=== PATIENT | male | born 1940 | race Caucasian/White ===

== ENCOUNTER 2020-01-26 20:25 | Inpatient (IN) | payer SELFPAY ==
[~2020-01-26] VITALS: Ht 167.6 cm; Wt 98.4 kg
[2020-01-26 20:25] VITALS: BP_SYST 200
--- NOTE | 2020-01-26 20:48 | NUR ---
Patient to ER bed 2 to gown for evaluation. Side rails up.
--- NOTE | 2020-01-26 21:00 | NUR ---
Pt BIB family to ED with history of hypertension on medications (unknown names), hyperlipidemia, and chronically on O2 at home (unknown reason), brought in by ambulance for sudden onset, shortness of breath and lightheadedness tonight. He was in a [facility] looking for medication for his left hand laceration endured tonight while peeling potatoes during onset. He attributes his symptoms to the laceration. No alleviating or exacerbating factors. No radiation of pain. No fevers, chills, cough, chest pain, chest pain, palpitations, syncope, nausea, vomiting, visual acuity changes, or other medical complaints at this time.
--- NOTE | 2020-01-26 21:20 | NUR ---
Dr. Arora bedside for LAC Repair procedure, well tolerated
[2020-01-26] MEDS ORDERED: BACITRACIN 1 GM OINT TP ONE (21:22)
[2020-01-26 21:40] LABS: HEMATOCRIT 40.2 % (36-54); HEMOGLOBIN 13.2 g/dL (14.0-18.0); MEAN CORPUSCULAR HEMOGLOBIN 30 pg (27-31); MEAN CORPUSCULAR HGB CONC 33 % (32-36); MEAN CORPUSCULAR VOLUME 91 fL (79.0-98.0); PLATELET COUNT (AUTO) 209 K/uL (130-430); RED BLOOD CELL COUNT(AUTO) 4.43 MIL/uL (4.2-6.2); RED CELL DISTRIBUTION WIDTH 14.7 % (9.0-15.0)
[2020-01-26 21:48] LABS: ANION GAP 9 (5-15); CALCIUM 8.8 mg/dL (8.4-11.0); CHLORIDE 103 mmol/L (98-107); CREATININE 1.34 mg/dL (0.55-1.30); GLUCOSE 155 mg/dL (70-99); POTASSIUM 3.6 mmol/L (3.5-5.1); SODIUM SERUM 139 mmol/L (136-145); UREA NITROGEN, BLOOD 23 mg/dL (8-21)
[2020-01-26 21:57] LABS: BAND % (MANUAL) 0 % (0-6); BASOPHILS % (MANUAL) 0 % (0-2); EOSINOPHILS % (MANUAL) 14 % (0-7); LYMPHOCYTES % (MANUAL) 17 % (20-46); MONOCYTES % (MANUAL) 4 % (0-11)
[2020-01-26] MEDS ORDERED: NITROGLYCERIN 0.4 MG TAB.SUBL SL ONE (22:00)
[2020-01-26] MEDS ORDERED: NITROGLYCERIN 1 INCH (GM) OINT. TP ONE (22:00)
[2020-01-26] MEDS ORDERED: DIPH-TET-PERTUS Vaccine 0.5 ML VIAL (ADACEL) I.M. ONE (22:00)
--- NOTE | 2020-01-26 22:16 | NUR ---
Portable X Ray bedside, with Dr. Arora present to take initial look
--- NOTE | 2020-01-26 22:21 | NUR ---
Dr. Arora bedside for pt re-eval and update
[2020-01-26] MEDS ORDERED: ASPIRIN 81 MG TAB.CHEW PO ONE (22:30)
[2020-01-26] MEDS ORDERED: LABETALOL 100 MG/ 20ML VIAL IVP ONE (22:30)
[2020-01-26 23:15] LABS: BILIRUBIN,URINE NEGATIVE (NEGATIVE); BLOOD, URINE 3+ (NEGATIVE); CLARITY/URINE CLEAR (CLEAR); COLOR,URINE YELLOW (YELLOW); GLUCOSE,URINE NEGATIVE (NEGATIVE); KETONES,URINE NEGATIVE (NEGATIVE); LEUKOCYTE ESTERASE ,URINE NEGATIVE (NEGATIVE); NITRITE, URINE NEGATIVE (NEGATIVE); PROTEIN URINE 2+ (NEGATIVE); UROBILINOGEN,URINE 0.2 (0.2-1.0)
[2020-01-26 23:20] LABS: BACTERIA,URINE RARE /HPF (None Seen); RBC,URINE >100 /HPF (0-3); WBC,URINE 0-3 /HPF (0-3)
--- NOTE | 2020-01-26 23:29 | NUR ---
VSS NO S/S OF ACUTE DISTRESS RESTING ON GURNEY RAILS UP
--- NOTE | 2020-01-27 00:34 | NUR ---
VSS NO S/S OF ACUTE DISTRESS RESTING ON GURNEY RAILS UP
--- NOTE | 2020-01-27 01:12 | NUR ---
LABETALOL IV MED EFFECTIVE CURRENT BP 164/89
--- NOTE | 2020-01-27 02:15 | NUR ---
VSS, BP currently at 172/86, compared to SBP above 200 during beginning of ED visit
--- NOTE | 2020-01-27 03:28 | NUR ---
Pt states "feeling better."
--- NOTE | 2020-01-27 04:31 | NUR ---
Pt tossed and turned abruptly and tugged on moncada cath, small to moderate hematuria via moncada, urine color trending degree clerk
--- NOTE | 2020-01-27 05:41 | NUR ---
Current BP 170/91, VSS no s/s of acute distress
--- NOTE | 2020-01-27 05:49 | NUR ---
CONSULTATION PAGED/CALLED Reason for Consultation: CHEST PAIN Person Who was Notified: DAMARIS Consulting Physician: BERNADINE MCFARLAND IS [employer] ADMINISTRATOR Director Of Sales Support Specialty: CARDIO Ordering Physician: ABDIAS
--- NOTE | 2020-01-27 07:10 | NUR ---
REPORT RECEIVED FROM MAYANK CRUZ FOR CONTINUING CARE
--- NOTE | 2020-01-27 08:21 | NUR ---
DR. CALERO AT THE BEDSIDE
[2020-01-27] MEDS ORDERED: ZOLPIDEM TARTRATE 5 MG TABLET PO PRN (08:30)
[2020-01-27] MEDS ORDERED: ACETAMINOPHEN 325 MG TABLET PO PRN (08:30)
[2020-01-27] MEDS ORDERED: POTASSIUM CHLORIDE 20 MEQ TAB.PRT.SR PO PRN (08:30)
[2020-01-27] MEDS ORDERED: MAGNESIUM SULFATE 50 ML IV PRN (08:30)
[2020-01-27] MEDS ORDERED: DOCUSATE SODIUM 100 MG CAPSULE PO PRN (08:30)
[2020-01-27] MEDS ORDERED: ENOXAPARIN SODIUM 40 MG/0.4 ML SYRINGE SUBCUT SCH (09:00)
[2020-01-27] MEDS ORDERED: METOPROLOL TARTRATE 25 MG TABLET PO SCH (09:00)
--- NOTE | 2020-01-27 09:15 | NUR ---
Patient will be admitted to care of DR. CALERO. Admitted to TELE unit. Will go to room 104B. Belongings list completed. Complete and up to date summary report printed. SBAR report to be given at bedside with opportunity for questions.
[2020-01-27 09:25] LABS: BASOPHILS # (AUTO) 0.1 K/uL (0.0-0.2); BASOPHILS % (AUTO) 0.5 % (0.0-2.0); EOSINOPHILS # (AUTO) 1.6 K/uL (0.0-0.4); EOSINOPHILS % (AUTO) 10.5 % (0.0-4.0); HEMATOCRIT 38.2 % (36-54); HEMOGLOBIN 12.2 g/dL (14.0-18.0); LYMPHOCYTES # (AUTO) 1.6 K/uL (1.0-5.5); LYMPHOCYTES % (AUTO) 11.1 % (20.5-51.5); MEAN CORPUSCULAR HEMOGLOBIN 29 pg (27-31); MEAN CORPUSCULAR HGB CONC 32 % (32-36); MEAN CORPUSCULAR VOLUME 92 fL (79.0-98.0); MONOCYTES % (AUTO) 6.9 % (1.7-9.3); NEUTROPHILS # (AUTO) 10.5 K/uL (1.8-7.7); PLATELET COUNT (AUTO) 195 K/uL (130-430); RED BLOOD CELL COUNT(AUTO) 4.16 MIL/uL (4.2-6.2); RED CELL DISTRIBUTION WIDTH 14.9 % (9.0-15.0); WHITE BLOOD COUNT (AUTO) 14.8 K/uL (4.8-10.8)
--- NOTE | 2020-01-27 09:52 | NUR ---
Opening Note received bedside SBAR report from PETROLEUM SAMPLER, patient brought to room 104B via gurney, patient resting in bed, patient placed on 2L nasal cannula and secured entrance monitor, moncada catheter draining to gravity, red urine noted, BP 188/108, HR 83, educated patient on use of call light and asked to call for assistance, patient returned demonstration, call light in reach, bed in low and locked position, bed alarm on.
[2020-01-27] MEDS: cefTRIAXone 1 GM in D5W 50 ML IV SCH (09:56)
--- NOTE | 2020-01-27 09:57 | NUR ---
Called Pharmacy called Pharmacy, spoke with Rosie, informed her that patients medication Lopressor is not available in the medication pixis, per Rosie she will inform the pharmacist.
[2020-01-27 10:00] VITALS: BP_SYST 188
--- NOTE | 2020-01-27 10:16 | NUR ---
Physician Rounds Dr. Bates at bedside examining patient, informed him of recent BP 188/108, HR 83, per Dr. Bates PO lopressor is all that is needed for now, Dr. Bates examined moncada catheter, saw bloody urine present, per Dr. Bates d/c moncada catheter, verified with read back.
[2020-01-27 12:00] VITALS: BP_SYST 167
[2020-01-27] MEDS: cloNIDine HCL 0.2 MG TABLET PO PRN (12:04)
--- NOTE | 2020-01-27 12:12 | NUR ---
D/C Moncada Catheter educated patient on purpose and procedure for moncada catheter removal, patient verbalized understanding and is agreeable, 10ml NS removed from balloon, moncada catheter removed, catheter intact, patient tolerated well, patient sitting up in bed eating lunch.
--- NOTE | 2020-01-27 12:46 | NUR ---
Medication Reconciliation patient states that he takes medication at home for blood pressure, however patient does not know what the medication is called, patient states that he does not have any family to call and ask because he lives alone.
--- NOTE | 2020-01-27 13:20 | NUR ---
Wound Care educated patient on purpose and procedure for wound care, patient verbalized understanding, wound care completed, photographs taken and placed in chart, patient tolerated well, patient reports pain is controlled during and after wound care, see MST shift assessment for wound care.
--- NOTE | 2020-01-27 15:15 | NUR ---
RN Rounds patient sleeping in bed, respirations even and unlabored on 2L nasal cannula, no acute distress noted.
[2020-01-27 16:00] VITALS: BP_SYST 152
--- NOTE | 2020-01-27 17:50 | NUR ---
Education educated patient on use and purpose of SCDs for DVT prophylaxis, patient verbalized understanding, SCDs in place, no acute distress noted.
--- NOTE | 2020-01-27 19:11 | NUR ---
Closing Note bedside SBAR report given to receiving RN, patient resting in bed, respirations even and unlabored on 2L nasal cannula, no acute distress noted, room close to nurses station, educated patient on use of call light and asked to call for assistance, patient verbalized understanding, call light in reach, bed in low and locked position, bed alarm on, care endorsed to rand butter RN.
--- NOTE | 2020-01-27 19:30 | NUR ---
OPENING NOTE RECEIVED CARE OF PT AND SBAR REPORT. PT IS AAOX4, RESTING IN BED, BREATHING IS EVEN AND UNLABORED TO O2 VIA NC AT 2L. NO S/S OF ACUTE DISTRESS NOTED. SAFETY AND FALL PRECAUTIONS ARE IN PLACE. BED IS LOCKED AND ALARMED AT THE LOWEST LEVEL. CALL LIGHT IS WITH PT. ROOM CLOSE TO NURSES STATION. WILL MONITOR.
[2020-01-27 20:00] VITALS: BP_SYST 133
[2020-01-27] MEDS: METOPROLOL TARTRATE 25 MG TABLET PO SCH (21:06)
--- NOTE | 2020-01-27 21:06 | NUR ---
MED PASS PT TOOK SCHEDULED MEDICATION ORDERED. SAFETY MAINTAINED. WILL MONITOR.
--- NOTE | 2020-01-27 23:30 | NUR ---
RN Rounds patient sleeping in bed, respirations even and unlabored on 2L nasal cannula, no acute distress noted.
[2020-01-28 01:30] VITALS: BP_SYST 158
[2020-01-28] MEDS: MORPHINE 2 MG/ML INJ. SYRINGE IVP PRN ×2 (01:40→20:26)
--- NOTE | 2020-01-28 01:40 | NUR ---
PAIN/MORPHINE PT REPORTING NOT BEING ABLE TO TAKE DEEP BREATHS. O2 SAT IS 99% ON ROOM AIR. PT PUT ON 2L O2 VIA NC. VSS. PT REPORTING MODERATE CHEST PAIN. MORPHINE GIVEN ORDERED PRN FOR PAIN. MEDICATION ACTIONS AND POTENTIAL SIDE EFFECTS EXPLAINED, PT VERBALIZED UNDERSTANDING. SAFETY MAINTAINED. WILL MONITOR.
[2020-01-28] MEDS: ONDANSETRON HCL 4 MG/2 ML VIAL IVP PRN ×2 (01:53→20:26)
--- NOTE | 2020-01-28 01:53 | NUR ---
ZOFRAN ZOFRAN GIVEN FOR REPORT OF NAUSEA ORDERED PRN. MEDICATION EXPLAINED TO PT, PT VERBALIZED UNDERSTANDING. SAFETY MAINTAINED. WILL MONITOR.
[2020-01-28] MEDS: LORazepam 2 MG/ML VIAL IVP PRN (02:20)
--- NOTE | 2020-01-28 04:05 | NUR ---
RN Rounds patient sleeping in bed, respirations even and unlabored on 2L nasal cannula, no acute distress noted.
[2020-01-28 06:43] LABS: BASOPHILS # (AUTO) 0.1 K/uL (0.0-0.2); BASOPHILS % (AUTO) 0.4 % (0.0-2.0); EOSINOPHILS # (AUTO) 2.1 K/uL (0.0-0.4); EOSINOPHILS % (AUTO) 15.9 % (0.0-4.0); HEMATOCRIT 33.7 % (36-54); HEMOGLOBIN 10.7 g/dL (14.0-18.0); LYMPHOCYTES # (AUTO) 1.9 K/uL (1.0-5.5); LYMPHOCYTES % (AUTO) 14.1 % (20.5-51.5); MEAN CORPUSCULAR HEMOGLOBIN 29 pg (27-31); MEAN CORPUSCULAR HGB CONC 32 % (32-36); MEAN CORPUSCULAR VOLUME 92 fL (79.0-98.0); MONOCYTES # (AUTO) 0.9 K/uL (0.0-1.0); MONOCYTES % (AUTO) 6.5 % (1.7-9.3); NEUTROPHILS # (AUTO) 8.3 K/uL (1.8-7.7); PLATELET COUNT (AUTO) 181 K/uL (130-430); RED BLOOD CELL COUNT(AUTO) 3.65 MIL/uL (4.2-6.2); RED CELL DISTRIBUTION WIDTH 14.8 % (9.0-15.0); WHITE BLOOD COUNT (AUTO) 13.2 K/uL (4.8-10.8)
[2020-01-28 07:12] LABS: ALANINE AMINOTRANSFERASE 35 U/L (12-78); ALBUMIN 2.2 g/dL (3.4-4.8); ANION GAP 8 (5-15); ASPARTATE AMINOTRANSFERASE 29 U/L (10-37); CALCIUM 8.5 mg/dL (8.4-11.0); CHLORIDE 107 mmol/L (98-107); CREATININE 1.21 mg/dL (0.55-1.30); GLUCOSE 113 mg/dL (70-99); POTASSIUM 3.6 mmol/L (3.5-5.1); SODIUM SERUM 141 mmol/L (136-145); THYROID STIMULATING HORMONE 4.96 uIu/mL (0.36-3.74); TOTAL BILIRUBIN 0.4 mg/dL (0.0-1.0); UREA NITROGEN, BLOOD 29 mg/dL (8-21)
--- NOTE | 2020-01-28 07:17 | NUR ---
Opening Note received bedside SBAR report from overnight cashier RN, patient resting in bed, respirations even and unlabored on 2L nasal cannula, no acute distress noted, room close to nurses station, educated patient on use of call light and asked to call for assistance, patient verbalized understanding, call light in reach, bed in low and locked position, bed alarm on.
[2020-01-28 07:41] LABS: CHOLESTEROL 88 mg/dL (<200); HDL CHOLESTEROL 29 mg/dL (>45); LDL CHOLESTEROL 52 mg/dL (<100); TRIGLYCERIDES 59 mg/dL (30-150)
[2020-01-28 08:09] LABS: NEUTROPHILS % (AUTO) 63.1 % (40.0-70.0)
[2020-01-28] MEDS: cefTRIAXone 1 GM in D5W 50 ML IV SCH (08:28)
[2020-01-28] MEDS: METOPROLOL TARTRATE 25 MG TABLET PO SCH ×2 (08:28→20:24)
--- NOTE | 2020-01-28 08:33 | NUR ---
Physician Rounds rounds with Dr. Good, informed him that when patient was admitted from ER moncada bag contained bloody urine, informed him that per Dr. Bates the moncada catheter was discontinued yesterday, informed him that patient is still having bloody urine when voiding.
--- NOTE | 2020-01-28 08:50 | NUR ---
Physician Rounds Dr. Good at bedside examining patient.
--- NOTE | 2020-01-28 08:52 | NUR ---
CONSULTATION PAGED/CALLED Reason for Consultation: [] HEMATURIA Person Who was Notified: [] DR SPICER Consulting Physician: [] Estefany REA Electric Motor Mechanic Specialty: [] UROLOGIST Ordering Physician: [] DR CALERO
--- NOTE | 2020-01-28 08:54 | NUR ---
Spoke with Physician spoke with Dr. Ordoñez, informed him that patient had moncada catheter inserted in ER, when patient was brought to the floor yesterday the moncada bag contained bloody red urine, the moncada catheter was discontinued yesterday per Dr. Bates's order, since then the patient has been having blood in his urine, per Dr. Ordoñez he will be in to see the patient.
[2020-01-28] MEDS ORDERED: MUPIROCIN 2% TOPICAL OINTMENT 22 GM NS PRN (09:00)
[2020-01-28 09:05] VITALS: BP_SYST 152
--- NOTE | 2020-01-28 10:33 | NUR ---
Physician at bedside Dr. Ordoñez at bedside examining patient, physician completed post void bladder scan, minimal residual, voided urine is dark red, Dr. Ordoñez inserted moncada catheter 18F, patient tolerated well, immediate return of bloody urine into moncada catheter bag, moncada catheter secured to right upper thigh with moncada catheter securement device, moncada catheter draining to gravity. Addendum: 01/28/20 at 1124 by Flavia Ramirez RN per Dr. Ordoñez moncada catheter should be irrigated at least once per shift or PRN to make sure urine is flowing freely in catheter, verified with read back.
--- NOTE | 2020-01-28 11:05 | NUR ---
Physician Rounds Dr. Bates at bedside examining patient.
[2020-01-28 12:16] VITALS: BP_SYST 145
--- NOTE | 2020-01-28 13:05 | NUR ---
Ambulated to bathroom patient requesting to use bathroom, patient ambulated to bathroom, steady gait noted, patient used bathroom independently, BM x1, linen changed, patient ambulated back to bed, patient resting in bed.
--- NOTE | 2020-01-28 13:22 | NUR ---
Wound Care educated patient on purpose and procedure for wound care, patient verbalized understanding, wound care completed to left thumb, patient tolerated well, patient denies any pain during or after wound care, no acute distress noted, see MST shift assessment for wound care.
--- NOTE | 2020-01-28 15:36 | NUR ---
Bladder Irrigation orders to irrigate moncada catheter Qshift, educated patient on purpose and procedure for moncada catheter irrigation, patient verbalized understanding, moncada catheter irrigated with 30ml sterile water, sterile technique observed, no clots noted in moncada catheter, draining well, bright red urine noted in moncada catheter tubing, patient tolerated well.
[2020-01-28 16:05] VITALS: BP_SYST 140
--- NOTE | 2020-01-28 18:48 | NUR ---
IV access IV catheter dislodged by patient, IV catheter found in patients bed, catheter intact, no bleeding, educated patient on purpose and procedure for IV catheter placement, patient verbalized understanding, IV catheter placed to right AC, 22G, flushes easily with good blood return, patient tolerated well.
--- NOTE | 2020-01-28 19:04 | NUR ---
Closing Note bedside SBAR report given to receiving RN, patient resting in bed, respirations even and unlabored on 2L nasal cannula, no acute distress noted, room close to nurses station, educated patient on use of call light and asked to call for assistance, patient verbalized understanding, call light in reach, bed in low and locked position, bed alarm on, care endorsed to shiftman RN.
--- NOTE | 2020-01-28 19:30 | NUR ---
OPENING NOTE RECEIVED CARE OF PT AND SBAR REPORT. PT RESTING IN BED, RESPIRATION ARE EVEN AND UNLABORED TO ROOM AIR, TOLERATING WELL. NO S/S OF ACUTE DISTRESS NOTED. MALLOY CATHETER IS INTACT AND DRAINING TO GRAVITY, BLOODY URINE NOTED. IV IS SALINE LOCKED, PATENT AND INTACT. SAFETY PRECAUTIONS ARE IN PLACE. CALL LIGHT IS WITH PT. BED IS LOCKED AND ALARMED AT THE LOWEST LEVEL. ROOM IS CLOSE TO NURSES STATION. WILL MONITOR.
[2020-01-28 20:00] VITALS: BP_SYST 160
--- NOTE | 2020-01-28 20:26 | NUR ---
PRN MEDICATIONS PT REQUESTING MORPHINE AND ZOFRAN FOR REPORT OF MODERATE CHEST PAIN. PT EDUCATED ON MEDICATIONS INDICATIONS AND POTENTIAL SIDE EFFECTS. PT VERBALIZED UNDERSTANDING. PT TOLERATED WELL. SAFETY MAINTAINED. WILL MONITOR.
--- NOTE | 2020-01-28 22:00 | NUR ---
RN NOTE: PT NOTED TO HAVE SOILED LINENS. COMPLETE LINEN CHANGE PROVIDED. PT TOLERATED WELL. NO S/S OF ACUTE DISTRESS. SAFETY PRECAUTIONS MAINTAINED. WILL MONITOR.
[2020-01-29] MEDS: MORPHINE 2 MG/ML INJ. SYRINGE IVP PRN ×2 (00:42→17:53)
[2020-01-29 01:03] VITALS: BP_SYST 155
[2020-01-29] MEDS: LORazepam 2 MG/ML VIAL IVP PRN ×2 (01:18→20:29)
--- NOTE | 2020-01-29 01:18 | NUR ---
ATIVAN PT GIVEN ATIVAN PER REQUEST FOR ANXIETY. PT TOLERATED WELL. NO S/S OF ACUTE DISTRESS. SAFETY MAINTAINED. WILL MONITOR.
--- NOTE | 2020-01-29 03:56 | NUR ---
RN Rounds patient sleeping in bed, respirations even and unlabored on 2L nasal cannula, no acute distress noted.
[2020-01-29 06:26] LABS: BASOPHILS # (AUTO) 0.1 K/uL (0.0-0.2); BASOPHILS % (AUTO) 0.5 % (0.0-2.0); EOSINOPHILS # (AUTO) 1.3 K/uL (0.0-0.4); EOSINOPHILS % (AUTO) 8.6 % (0.0-4.0); HEMATOCRIT 34.3 % (36-54); HEMOGLOBIN 10.9 g/dL (14.0-18.0); LYMPHOCYTES % (AUTO) 13.5 % (20.5-51.5); MEAN CORPUSCULAR HEMOGLOBIN 29 pg (27-31); MEAN CORPUSCULAR HGB CONC 32 % (32-36); MEAN CORPUSCULAR VOLUME 92 fL (79.0-98.0); MONOCYTES # (AUTO) 1.1 K/uL (0.0-1.0); MONOCYTES % (AUTO) 7.4 % (1.7-9.3); NEUTROPHILS # (AUTO) 10.5 K/uL (1.8-7.7); PLATELET COUNT (AUTO) 190 K/uL (130-430); RED BLOOD CELL COUNT(AUTO) 3.71 MIL/uL (4.2-6.2); WHITE BLOOD COUNT (AUTO) 14.9 K/uL (4.8-10.8)
--- NOTE | 2020-01-29 06:35 | NUR ---
CLOSING NOTE PT RESTING IN BED, RESPIRATION ARE EVEN AND UNLABORED TO ROOM AIR, TOLERATING WELL. NO S/S OF ACUTE DISTRESS NOTED. MALLOY CATHETER IS INTACT AND DRAINING TO GRAVITY, BLOODY URINE NOTED. IV IS SALINE LOCKED, PATENT AND INTACT. SAFETY PRECAUTIONS ARE IN PLACE. CALL LIGHT IS WITH PT. BED IS LOCKED AND ALARMED AT THE LOWEST LEVEL. ROOM IS CLOSE TO NURSES STATION. WILL CONTINUE TO MONITOR UNTIL CARE IS ENDORSED TO DAY SHIFT RN.
[2020-01-29 06:51] LABS: ANION GAP 4 (5-15); CALCIUM 8.4 mg/dL (8.4-11.0); CHLORIDE 108 mmol/L (98-107); CREATININE 1.11 mg/dL (0.55-1.30); GLUCOSE 106 mg/dL (70-99); POTASSIUM 3.6 mmol/L (3.5-5.1); SODIUM SERUM 141 mmol/L (136-145); UREA NITROGEN, BLOOD 27 mg/dL (8-21)
--- NOTE | 2020-01-29 07:48 | NUR ---
Initial notes: Patient is alert, awake and oriented, not showing any signs of distress on 2L NC. Patient RAC IV is patent and SL at this time. Patient has MRI scheduled for this am, will have patient sign consent. Pérez cath is intact, draining red urine at this time, will irrigate as needed - will continue to monitor. I got a full report from the pm nurse. Bed is low, locked, 2 side rails are up and call light is within reach.
[2020-01-29 08:00] VITALS: BP_SYST 189
[2020-01-29] MEDS: cefTRIAXone 1 GM in D5W 50 ML IV SCH (08:00)
[2020-01-29] MEDS: METOPROLOL TARTRATE 25 MG TABLET PO SCH ×2 (08:01→22:25)
--- NOTE | 2020-01-29 10:15 | NUR ---
Patient awake and alert, sitting in bed. Not showing any signs of distress, denies pain. All needs were met. Bed is low, locked, 2 side rails are up and call light is within reach.
--- NOTE | 2020-01-29 10:30 | NUR ---
WOUND EVALUATION: Wound Consult received from Dr. Good. Thank you, Dr. Good, for the consult. Patient received in a Daniel Bed with an IsoFlex DAVID mattress, awake, alert, and oriented, Polish speaking. Patient is able to turn in bed independently. Chad Score is a 19. Past Medical History: COPD, Hypertension, Dyslipidemia, on oxygen at home. Admitted for accelerated hypertension with headache. Recent Labs: WBC 14.9, RBC 3.71, Hgb 10.9, Hct 34.3, Cl 108, BUN 27, Creat 1.11, Gluc 106, BNP 557, Alb 2.2. No microbiology reports. Intrinsic factors that delay wound healing: COPD, Hypoalbuminemia. Extrinsic factors that delay wound healing: Decreased mobility. Wound Assessment: 1. Left Thumb: Laceration, present on admission. Laceration has sutures, is approximated. No odor, no drainage. Rebekah-wound intact. Laceration measures 0.3 cm x 2.6 cm. Recommend: Cleanse with normal saline. Pat dry around incision. Carlyle laceration with Betadine. Allow to air dry. Wrap with enrike wrap and secure with tape. Perform wound care daily, and as needed for dressing soiling or dislodgment. 2. Left Dorsal Foot: Multiple tiny black scabs, present on admission. Lower portion of extremity and foot also have dry skin. 3. Right Dorsal Foot: Multiple tiny black scabs, present on admission. Lower portion of extremity and foot also have dry skin. Recommend: Cleanse extremities and feet with mild soap and water. Pat dry. Applt Eucerin cream to bilateral lowr extremities and feet. Perform site care BID. Also recommend: Encourage and assist patient as needed with repositioning every 2 hours with pillow support and off-load pressure areas with pillows for pressure re-distribution. Perform skin care and monitor skin integrity Q shift. Use Hydraguard barrier cream on buttocks and other moisture susceptible areas QID and as needed for soiling.
[2020-01-29 11:30] VITALS: BP_SYST 170
[2020-01-29] MEDS ORDERED: FUROSEMIDE 40 MG TABLET PO ONE (12:30)
[2020-01-29] MEDS ORDERED: GADOBENATE DIMEGLUMINE 529 MG/ML, 15 ML VIAL IV ONE (12:33)
--- NOTE | 2020-01-29 13:31 | NUR ---
DC Barriers: Uncontrolled HTN SBP 189-170/101 on Lisinopril and lasix, BBB, FC leakage/slight red tinged. Per Urologist : to keep moncada until urine is cleared and then tiral voiding. UTI pending UACx. Checking insurance self pay vs medicare/medi-nidhi.
--- NOTE | 2020-01-29 13:46 | NUR ---
Dietitian Recommendations *Continue Cardiac diet. *Recommend: add Robe BID for wound healing. Please see Nutrition F/U note for details. LOU THOMAS
[2020-01-29 15:32] VITALS: BP_SYST 164
[2020-01-29 16:00] VITALS: BP_SYST 164
--- NOTE | 2020-01-29 18:51 | NUR ---
Closing notes: Patient is alert, awake and oriented, not showing any signs of distress on 2L NC. Patient RAC IV is patent and SL at this time. Patient had an MRI done today. Pérez cath is intact, draining red urine at this time, will irrigate as needed - will continue to monitor, per MD do not remove despite the leak. All of the patients needs were met during the shift. Bed is low, locked, 2 side rails are up and call light is within reach.
[2020-01-29 20:00] VITALS: BP_SYST 202
[2020-01-29] MEDS: cloNIDine HCL 0.2 MG TABLET PO PRN (20:28)
--- NOTE | 2020-01-29 22:25 | NUR ---
Lopressor Due mediation given; blood pressure is 157/114, HR 94. He is awake resting in bed.
[2020-01-30 00:02] VITALS: BP_SYST 134
--- NOTE | 2020-01-30 03:14 | NUR ---
Irrigate F/C Patient resting in bed w/ eyes closed and momentarily awakened for irrigation. Presently he denies pain. Emptied 150 ml red tingle output from F/C. Irrigated with 80 ml NS, patient tolerating.
[2020-01-30] MEDS: cloNIDine HCL 0.2 MG TABLET PO PRN (06:01)
[2020-01-30 06:37] LABS: BASOPHILS # (AUTO) 0.1 K/uL (0.0-0.2); BASOPHILS % (AUTO) 0.7 % (0.0-2.0); EOSINOPHILS # (AUTO) 0.4 K/uL (0.0-0.4); EOSINOPHILS % (AUTO) 3.1 % (0.0-4.0); HEMATOCRIT 31.9 % (36-54); HEMOGLOBIN 10.4 g/dL (14.0-18.0); LYMPHOCYTES % (AUTO) 15.2 % (20.5-51.5); MEAN CORPUSCULAR HEMOGLOBIN 29 pg (27-31); MEAN CORPUSCULAR HGB CONC 33 % (32-36); MEAN CORPUSCULAR VOLUME 90 fL (79.0-98.0); MONOCYTES # (AUTO) 0.9 K/uL (0.0-1.0); MONOCYTES % (AUTO) 6.5 % (1.7-9.3); NEUTROPHILS # (AUTO) 9.9 K/uL (1.8-7.7); NEUTROPHILS % (AUTO) 74.5 % (40.0-70.0); PLATELET COUNT (AUTO) 182 K/uL (130-430); RED BLOOD CELL COUNT(AUTO) 3.56 MIL/uL (4.2-6.2); RED CELL DISTRIBUTION WIDTH 14.8 % (9.0-15.0); WHITE BLOOD COUNT (AUTO) 13.3 K/uL (4.8-10.8)
[2020-01-30 06:54] LABS: ANION GAP 7 (5-15); CALCIUM 8.4 mg/dL (8.4-11.0); CHLORIDE 106 mmol/L (98-107); CREATININE 0.98 mg/dL (0.55-1.30); GLUCOSE 103 mg/dL (70-99); POTASSIUM 3.4 mmol/L (3.5-5.1); SODIUM SERUM 140 mmol/L (136-145); UREA NITROGEN, BLOOD 25 mg/dL (8-21)
--- NOTE | 2020-01-30 07:50 | NUR ---
OPENING NOTES, RECEIVED PT IN BED, PT IS AAOX4, DENIES PAIN, BP ELEVATED , NO FEVER. MALLOY DRAINING REDDISH URINE. SAFETY PRECAUTION IN PLACE. BED IN LOW POSITION AND LOCKED, CALL LIGHT IN REACH. ENCOURAGED PT TO CALL FOR ASSIST AND PAIN MEDS. WILL CONT TO MONITOR.
[2020-01-30 07:55] VITALS: BP_SYST 115
[2020-01-30] MEDS ORDERED: FUROSEMIDE 40 MG TABLET ONE (08:27)
[2020-01-30] MEDS: METOPROLOL TARTRATE 25 MG TABLET PO SCH ×2 (08:30→21:13)
[2020-01-30] MEDS: cefTRIAXone 1 GM in D5W 50 ML IV SCH (08:30)
[2020-01-30] MEDS ORDERED: FUROSEMIDE 40 MG TABLET PO SCH (09:00)
--- NOTE | 2020-01-30 09:30 | NUR ---
PT RESTING IN BED, NO S/SO PAIN, MALLOY STILL DRAINING REDDISH URINE.
--- NOTE | 2020-01-30 10:30 | NUR ---
MALLOY CATH STILL DRAINING REDDISH URINE. FLUSHED WITH 120 CC OF NS. WILL PT TOLERATED WELL. WILL CONT TO MONITOR
[2020-01-30 11:03] VITALS: BP_SYST 145
--- NOTE | 2020-01-30 11:46 | NUR ---
TALKED TO PT IN [place]. PT SAID HE HAS NO FAMILY HERE. HIS FAMILY ARE IN [facility]. PT SAID HE LIVES IN AN APARTMENT ALONE.
--- NOTE | 2020-01-30 12:00 | NUR ---
SSW HERE AND SPOKE WITH PT, RE PAPERS RE HIS INSURANCE OR ANY MEDICAL CARD. PT REFUSED TO HAVE HIS BELONGINGS CHECKED FOR ANY TYPE OF PAPERS IN HIS BELONGINGS BAG.
--- NOTE | 2020-01-30 13:55 | NUR ---
SS notes: BANDSAW OPERATOR and RN met with patient at bedside to obtain more information. Pt stated he goes to a clinic on [facility] in [place] and gets his medication filled at the clinic. Pt also mentioned a different (07/27/1946). BANDSAW OPERATOR phoned [facility] (p:[phone]) which is located on [facility] in the [place] and provided them with patient name to look up, but unable to find patient in their system. Pt was brought in by [facility] from [facility] on [facility] in [place]; both [facility] and [facility] (p:[phone]) do not have patient information in their system. No translation line available at this time, and SS will follow up.
--- NOTE | 2020-01-30 14:30 | NUR ---
PT MALLOY CATH IRRIGATED AGAIN. NO CLOTS NOTED. DRAINAGE SLOWLY GETTING PINKISH IN COLOR. WILL CONT TO MONITOR.
--- NOTE | 2020-01-30 14:35 | NUR ---
CONSULTATION PAGED/CALLED Reason for Consultation: MENINGIOMA Person Who was Notified: STACY Consulting Physician: LUCIANO Supervisor Carbon Paper Coating Specialty: Ordering Physician: ABDIAS
--- NOTE | 2020-01-30 18:39 | NUR ---
DR WOLF IS HERE, INFORMED MD THAT DR CALERO WANTED FOR HIM TO SEE PT FOR MENIGIOMA AND DR CALERO WANTS TO KNOW IF PT CAN BE DC AND MANAGED OUT PT. DR WOLF SAID HE WILL SEE HJIM TOMORROW BECAUSE HE WANTS TO KNOW FIRST PT'S INSURANCE , SAID HE DOES NOT MEDICAL PATIENT.
--- NOTE | 2020-01-30 19:15 | NUR ---
CHANGE OF SHIFT; endorsed by day shift. no resp. distress. resting in bed when received. off O2. pt. room close to station. call light within reach.
--- NOTE | 2020-01-30 20:00 | NUR ---
NOTES: pt. awake, alert, citizen [place] speaking. IV lock on rt. antecubital. been getting ot of bed and ambulates inside the room. moncada cath to osd with vanessa urine, no blood. on cardiac rehabilitation specialist and shows sinus rhythm. call light at bedside.
[2020-01-30 21:00] VITALS: BP_SYST 164
--- NOTE | 2020-01-30 21:00 | NUR ---
NOTES: pt. due meds given. VS checked. pt. up and sitting in a chair. O2 standby, does not want to use now. O2 sat 97%.
[2020-01-30] MEDS: MORPHINE 2 MG/ML INJ. SYRINGE IVP PRN (21:42)
--- NOTE | 2020-01-30 21:42 | NUR ---
NOTES: pt. c/o chest pain, Morphine IVP given as ordered. instructed to stay in bed. also given sleeping pill.
[2020-01-31 00:30] VITALS: BP_SYST 154
--- NOTE | 2020-01-31 01:08 | NUR ---
NOTES: pt. already awake, saying he cant breathe but does not want to use O2. wants another Morphine not due yet. asked to stay in bed.
--- NOTE | 2020-01-31 02:00 | NUR ---
NOTES: pt. able to go back to sleep. no resp. distress. condition observed.
--- NOTE | 2020-01-31 04:00 | NUR ---
NOTES: pt. moncada leaking again, instill more saline for the balloon. irrigated with clear return , no bleeding. complete linen changed gown done. pt. keeps moving around, cannot keep still.
[2020-01-31] MEDS: MORPHINE 2 MG/ML INJ. SYRINGE IVP PRN (04:21)
--- NOTE | 2020-01-31 04:21 | NUR ---
NOTES: pt. still awake, wants medication for pain with his chest discomfort, IV Morphine given. instructed to stay in bed.
--- NOTE | 2020-01-31 05:30 | NUR ---
NOTES; PT. ALREADY AWAKE, UP AND WET WITH URINE, REMAIN LEAKING, WANTS MONCADA OUT. Addendum: 01/31/20 at 0637 by Archana Chua RN Late entry; 2540 informed pt. will remove moncada and replace another one, agreed but when removed does not want it back since he said it hurts,
--- NOTE | 2020-01-31 06:25 | NUR ---
NOTES: asked linen clerk to call Dr. Ordoñez, waiting for call back. pt. resting at this time.
--- NOTE | 2020-01-31 06:26 | NUR ---
PAGED PAGED ARELIS ALEXANDRA AT [phone] LEFT A VOICEMAIL.
[2020-01-31 06:30] LABS: BASOPHILS # (AUTO) 0.1 K/uL (0.0-0.2); BASOPHILS % (AUTO) 0.6 % (0.0-2.0); EOSINOPHILS # (AUTO) 1.5 K/uL (0.0-0.4); EOSINOPHILS % (AUTO) 11.1 % (0.0-4.0); HEMATOCRIT 34.3 % (36-54); HEMOGLOBIN 11.1 g/dL (14.0-18.0); LYMPHOCYTES # (AUTO) 2.5 K/uL (1.0-5.5); LYMPHOCYTES % (AUTO) 18.4 % (20.5-51.5); MEAN CORPUSCULAR HEMOGLOBIN 29 pg (27-31); MEAN CORPUSCULAR HGB CONC 32 % (32-36); MEAN CORPUSCULAR VOLUME 91 fL (79.0-98.0); MONOCYTES # (AUTO) 1.2 K/uL (0.0-1.0); MONOCYTES % (AUTO) 8.8 % (1.7-9.3); NEUTROPHILS # (AUTO) 8.2 K/uL (1.8-7.7); NEUTROPHILS % (AUTO) 61.1 % (40.0-70.0); PLATELET COUNT (AUTO) 195 K/uL (130-430); RED BLOOD CELL COUNT(AUTO) 3.76 MIL/uL (4.2-6.2); RED CELL DISTRIBUTION WIDTH 14.8 % (9.0-15.0); WHITE BLOOD COUNT (AUTO) 13.4 K/uL (4.8-10.8)
--- NOTE | 2020-01-31 07:15 | NUR ---
Opening Note Received report from endorsing RN. Pt states no pain or distress at this time, on room air. IV site intact, patent, no infiltration noted. Pérez catheter removed by RN last night, no bleeding noted per report. Left thumb with sutures and betadine, no active bleeding or pain noted by patient. No other complaints at this time.
[2020-01-31 07:16] LABS: ANION GAP 8 (5-15); CALCIUM 8.3 mg/dL (8.4-11.0); CHLORIDE 106 mmol/L (98-107); CREATININE 1.05 mg/dL (0.55-1.30); GLUCOSE 117 mg/dL (70-99); POTASSIUM 3.4 mmol/L (3.5-5.1); SODIUM SERUM 140 mmol/L (136-145); UREA NITROGEN, BLOOD 23 mg/dL (8-21)
[2020-01-31] MEDS ORDERED: LEVO500T89 PO (08:28)
[2020-01-31] MEDS ORDERED: METO-442 PO (08:28)
[2020-01-31] MEDS ORDERED: FURO-149 PO (08:28)
[2020-01-31] MEDS ORDERED: LISI-209 PO (08:28)
[2020-01-31] MEDS ORDERED: POTA10TA11 PO (08:28)
--- NOTE | 2020-01-31 08:30 | NUR ---
Dr. Good and Dr. Ordoñez rounding on patient. Informed Dr. Ordoñez regarding patient's bladder scan less than 200 ml, Dr. Ordoñez states OK for no moncada catheter replacement. Dr. Good also aware.
[2020-01-31 08:57] VITALS: BP_SYST 155
[2020-01-31] MEDS ORDERED: lisinopriL 5 MG TABLET PO SCH (09:00)
--- NOTE | 2020-01-31 09:29 | NUR ---
DISCHARGE PATIENT HAS DISCHARGE ORDERS TODAY. PATIENT SPEAKS ZIMBABWEAN ONLY. WITH FUND ACCOUNTANT, PATIENT WAS INSTRUCTED REGARDING NEW MEDICATIONS PRESCRIBED TO HIM AND NEEF FOR DOCTOR''S FOLLOW UP. PT DOES NOT HAVE A PCP, LIST OF [facility] PROVIDED TO HIM. PATIENT VERBALIZED UNDERSTANDING. PATIENT WAS ORDERED A TAXI TO TAKE HIM HOME TO THE ADDRESS ON THE FACE SHEET THAT HE VERIFIED. HE STATED THAT ITS A RENTAL APARTMENT AND SHOWED RECORDER THE [facility] TO GET IN. PATIENT ALSO STATED THAT HE HAS A FRIEND WHO CAN TAKE HIM TO THE PHARMACY TO COMPUTER ANIMATOR HIS PRESCRIPTIONS
--- NOTE | 2020-01-31 09:45 | NUR ---
DISCHARGE IV CANNULA REMOVED,NO REDNESS OR SWELLING ON THE SITE. NAME BAND REMOVED. ACCOMPANIED PATIENT OUTSIDE AND WAITED TO GET TO HIS TAXI. PATIENT WALKED FROM HIS ROOM TO OUTSIDE WITHOUT PROBLEM
== END 2020-01-31 09:45 | disposition home or self-care (01) | DRG 304 ==
LOC: SED 20:25 → SMU 23:16 → STU 23:59
PROVIDERS: ADMIT General Practice; ATTEND General Practice
PROC: 0HQGXZZ Repair Left Hand Skin, External Approach (ICD-10-PCS; principal; 2020-01-26)
DX: I16.1 Hypertensive emergency (principal); N17.0 Acute kidney failure with tubular necrosis; S61.012A Laceration without foreign body of left thumb without damage to nail, initial encounter; D32.9 Benign neoplasm of meninges, unspecified; D72.829 Elevated white blood cell count, unspecified; E66.9 Obesity, unspecified; E78.5 Hyperlipidemia, unspecified; I11.0 Hypertensive heart disease with heart failure; I44.7 Left bundle-branch block, unspecified; I50.9 Heart failure, unspecified; J44.9 Chronic obstructive pulmonary disease, unspecified; R31.0 Gross hematuria; W26.0XXA Contact with knife, initial encounter; Z20.828 Contact with and (suspected) exposure to other viral communicable diseases; K21.9 Gastro-esophageal reflux disease without esophagitis; N40.0 Benign prostatic hyperplasia without lower urinary tract symptoms; X58.XXXA Exposure to other specified factors, initial encounter; Y93.89 Activity, other specified; Z68.35 Body mass index [BMI] 35.0-35.9, adult; Y92.89 Other specified places as the place of occurrence of the external cause; Y99.8 Other external cause status
CPT/HCPCS: 36415; 70450-TC; 70553; 71045; 76376; 76770; 80048; 80053; 80061; 81000-TC; 83036; 83735-TC; 83880; 84443-TC; 84484; 85007; 85025; 85027; 93005; 93306; 96374; 99291; A9577; G0378; J0696; J2060; J2270; J2405; J7060